=== PATIENT | female | born 2000 | race Caucasian/White ===

== ENCOUNTER 2025-02-11 19:26 | Emergency (ER) | payer OTHER ==
[2025-02-11] MEDS: LORazepam 1 MG/0.5 ML VIAL IV STA (19:55)
[2025-02-11 20:02] LABS: Basophils # (A) 0.08 10*3/uL (0.00-0.10); Basophils % (A) 0.7 %; Eosinophils # (A) 0.16 10*3/uL (0.04-0.35); Eosinophils % (A) 1.5 %; HCT 38.4 % (37.2-46.3); HGB 12.9 g/dL (12.0-15.0); Lymphocytes # (A) 2.44 10*3/uL (0.90-5.00); Lymphocytes % (A) 22.3 %; MCH 29.8 pg (27.0-32.0); MCHC 33.6 g/dL (32.0-37.0); MCV 88.7 fL (80.0-97.0); Monocytes # (A) 0.76 10*3/uL (0.20-1.00); Monocytes % (A) 7.0 %; Neutrophils # (A) 7.45 10*3/uL (1.80-7.70); Neutrophils % (A) 68.2 %; Platelet Count 325 10*3/uL (140-440); RBC 4.33 10*6/uL (4.10-5.20); RDW 13.4 % (11.5-14.5); WBC 10.92 10*3/uL (4.50-10.00)
[2025-02-11 20:15] LABS: ALT 23 U/L (4-34); AST 25 U/L (14-36); African American GFR (CKD) >90 (>60 ml/min/1.73 sqM); Albumin 4.4 g/dL (3.5-5.0); Alkaline Phosphatase 72 U/L (38-126); Anion Gap 12 mmol/L; Blood Urea Nitrogen 15 mg/dL (7-17); Calcium 9.5 mg/dL (8.4-10.2); Carbon Dioxide 22 mmol/L (22-30); Chloride 101 mmol/L (98-107); Glucose 118 mg/dL (74-99); Magnesium 1.8 mg/dL (1.6-2.3); Non-African American GFR(CKD) >90 (>60 ml/min/1.73 sqM); Potassium 4.0 mmol/L (3.5-5.1); Sodium 135 mmol/L (137-145); Total Protein 7.3 g/dL (6.3-8.2)
--- NOTE | 2025-02-11 20:20 | ED ---
Seizure HPI <Cari Farr - Last Filed: 02/11/25 23:10> - General Source: patient, EMS Mode of arrival: EMS Limitations: altered mental status <Gill Martinez - Last Filed: 02/11/25 23:51> - General Chief Complaint: Seizure Stated Complaint: seizure Time Seen by Provider: 02/11/25 19:37 - History of Present Illness Initial Comments: 24-year-old female presenting with chief complaint of seizure. Patient has history of seizures. Family reports that she had a grand mal seizure while at a restaurant tonight. They report that they seem to be stress-induced, the patient is currently in the process of moving back home with her parents after breaking up with her boyfriend. They report that she had a seizure last night when they dropped her back off at her boyfriend's house. She was recently taken off of Keppra. She is currently on Lamictal, and 1 other medication but they are unsure of the name. Patient does not remember the incident. She is now awake and alert and answering questions. No chest pain or difficulty breathing. Parents states she did not hit her head, she was seated and leaned against the wall during the seizure. (Gill Martinez) - Related Data Allergies Allergy/AdvReac Type Severity Reaction Status Date / Time No Known Allergies Allergy Verified 02/11/25 19:47 Review of Systems ROS Other: All systems not noted in ROS Statement are negative. <Cari - Last Filed: 02/11/25 23:10> ROS Other: All systems not noted in ROS Statement are negative. <Gill Martinez - Last Filed: 02/11/25 23:51> ROS Statement: Those systems with pertinent positive or pertinent negative responses have been documented in the HPI. Past Medical History Past Medical History: Seizure Disorder History of Any Multi-Drug Resistant Organisms: None Reported Past Surgical History: No Surgical Hx Reported Past Psychological History: No Psychological Hx Reported Smoking Status: Never smoker Past Alcohol Use History: None Reported Past Drug Use History: None Reported <Gill Martinez - Last Filed: 02/11/25 23:51> General Exam Limitations: altered mental status General appearance: alert, in no apparent distress Head exam: Present: atraumatic, normocephalic, normal inspection Eye exam: Present: normal appearance, EOMI Neck exam: Present: normal inspection. Absent: meningismus Respiratory exam: Present: normal lung sounds bilaterally. Absent: respiratory distress, wheezes, rales, rhonchi, stridor Cardiovascular Exam: Present: normal rhythm, tachycardia, normal heart sounds. Absent: systolic murmur, diastolic murmur, rubs, gallop, clicks Neurological exam: Present: alert, oriented X3 Expanded Eye Response: (4) open spontaneously Motor Response: (6) obeys commands Verbal Response: (5) oriented Berny Total: 15 Psychiatric exam: Present: normal affect, normal mood Skin exam: Present: warm, dry, normal color <Gill Martinez - Last Filed: 02/11/25 23:51> Course Vital Signs 02/11/25 02/11/25 19:28 21:21 Temperature 98.5 F Pulse Rate 109 H 103 H Respiratory 18 16 Rate Blood Pressure 126/81 O2 Sat by Pulse 97 Oximetry Medical Decision Making - Lab Data Result diagrams: 02/11/25 19:48 02/11/25 19:48 <Cari Farr - Last Filed: 02/11/25 23:10> - Lab Data Result diagrams: 02/11/25 19:48 02/11/25 19:48 <Gill Martinez - Last Filed: 02/11/25 23:51> - Lab Data Lab Results 02/11/25 02/11/25 02/11/25 Range/Units 19:48 19:48 21:52 WBC 10.92 H (4.50-10.00) 10*3/uL RBC 4.33 (4.10-5.20) 10*6/uL Hgb 12.9 (12.0-15.0) g/dL Hct 38.4 (37.2-46.3) % MCV 88.7 (80.0-97.0) fL MCH 29.8 (27.0-32.0) pg MCHC 33.6 (32.0-37.0) g/dL Plt Count 325 (140-440) 10*3/uL MPV 8.9 L (9.5-12.2) fL Immature Gran % (Auto) 0.3 % Neutrophils % 68.2 % Lymphocytes % 22.3 % Monocytes % 7.0 % Eosinophils % 1.5 % Basophils % 0.7 % Immature Gran # 0.03 (0.00-0.04) 10*3/uL Neutrophils # 7.45 (1.80-7.70) 10*3/uL Lymphocytes # 2.44 (0.90-5.00) 10*3/uL Monocytes # 0.76 (0.20-1.00) 10*3/uL Eosinophils # 0.16 (0.04-0.35) 10*3/uL Basophils # 0.08 (0.00-0.10) 10*3/uL Sodium 135 L (137-145) mmol/L Potassium 4.0 (3.5-5.1) mmol/L Chloride 101 (98-107) mmol/L Carbon Dioxide 22 (22-30) mmol/L Anion Gap 12 mmol/L BUN 15 (7-17) mg/dL Creatinine 0.72 (0.52-1.04) mg/dL Est GFR (CKD-EPI)AfAm >90 (>60 ml/min/1.73 sqM) Est GFR (CKD-EPI)NonAf >90 (>60 ml/min/1.73 sqM) Glucose 118 H (74-99) mg/dL Calcium 9.5 (8.4-10.2) mg/dL Magnesium 1.8 (1.6-2.3) mg/dL Total Bilirubin 0.3 (0.2-1.3) mg/dL AST 25 (14-36) U/L ALT 23 (4-34) U/L Alkaline Phosphatase 72 (38-126) U/L Total Protein 7.3 (6.3-8.2) g/dL Albumin 4.4 (3.5-5.0) g/dL Urine Color Yellow Urine Appearance Cloudy H (Clear) Urine pH 5.5 (5.0-8.0) Ur Specific [place] 1.023 (1.001-1.035) Urine Protein Trace H (Negative) Urine Glucose (UA) Negative (Negative) Urine Ketones Negative (Negative) Urine Blood Small H (Negative) Urine Nitrite Negative (Negative) Urine Bilirubin Negative (Negative) Urine Urobilinogen <2.0 (<2.0) mg/dL Ur Leukocyte Esterase Negative (Negative) Urine RBC 2 (0-5) /hpf Urine WBC 2 (0-5) /hpf Ur Squamous Epith Cells 1 (0-4) /hpf Urine Bacteria Rare H (None) /hpf Hyaline Casts 12 H (0-2) /lpf Urine Mucus Few H (None) /hpf Urine Yeast (Budding) Rare H (None) /hpf Urine HCG, Qual (Not Detectd) Urine Opiates Screen Not Detected (NotDetected) Ur Oxycodone Screen Not Detected (NotDetected) Urine Methadone Screen Not Detected (NotDetected) Ur Barbiturates Screen Not Detected (NotDetected) U Tricyclic Antidepress Not Detected (NotDetected) Ur Phencyclidine Scrn Not Detected (NotDetected) Ur Amphetamines Screen Not Detected (NotDetected) U Methamphetamines Scrn Not Detected (NotDetected) U Benzodiazepines Scrn Detected H (NotDetected) Urine Cocaine Screen Not Detected (NotDetected) U Marijuana (THC) Screen Not Detected (NotDetected) 02/11/25 Range/Units 21:52 WBC (4.50-10.00) 10*3/uL RBC (4.10-5.20) 10*6/uL Hgb (12.0-15.0) g/dL Hct (37.2-46.3) % MCV (80.0-97.0) fL MCH (27.0-32.0) pg MCHC (32.0-37.0) g/dL Plt Count (140-440) 10*3/uL MPV (9.5-12.2) fL Immature Gran % (Auto) % Neutrophils % % Lymphocytes % % Monocytes % % Eosinophils % % Basophils % % Immature Gran # (0.00-0.04) 10*3/uL Neutrophils # (1.80-7.70) 10*3/uL Lymphocytes # (0.90-5.00) 10*3/uL Monocytes # (0.20-1.00) 10*3/uL Eosinophils # (0.04-0.35) 10*3/uL Basophils # (0.00-0.10) 10*3/uL Sodium (137-145) mmol/L Potassium (3.5-5.1) mmol/L Chloride (98-107) mmol/L Carbon Dioxide (22-30) mmol/L Anion Gap mmol/L BUN (7-17) mg/dL Creatinine (0.52-1.04) mg/dL Est GFR (CKD-EPI)AfAm (>60 ml/min/1.73 sqM) Est GFR (CKD-EPI)NonAf (>60 ml/min/1.73 sqM) Glucose (74-99) mg/dL Calcium (8.4-10.2) mg/dL Magnesium (1.6-2.3) mg/dL Total Bilirubin (0.2-1.3) mg/dL AST (14-36) U/L ALT (4-34) U/L Alkaline Phosphatase (38-126) U/L Total Protein (6.3-8.2) g/dL Albumin (3.5-5.0) g/dL Urine Color Urine Appearance (Clear) Urine pH (5.0-8.0) Ur Specific [place] (1.001-1.035) Urine Protein (Negative) Urine Glucose (UA) (Negative) Urine Ketones (Negative) Urine Blood (Negative) Urine Nitrite (Negative) Urine Bilirubin (Negative) Urine Urobilinogen (<2.0) mg/dL Ur Leukocyte Esterase (Negative) Urine RBC (0-5) /hpf Urine WBC (0-5) /hpf Ur Squamous Epith Cells (0-4) /hpf Urine Bacteria (None) /hpf Hyaline Casts (0-2) /lpf Urine Mucus (None) /hpf Urine Yeast (Budding) (None) /hpf Urine HCG, Qual Not Detected (Not Detectd) Urine Opiates Screen (NotDetected) Ur Oxycodone Screen (NotDetected) Urine Methadone Screen (NotDetected) Ur Barbiturates Screen (NotDetected) U Tricyclic Antidepress (NotDetected) Ur Phencyclidine Scrn (NotDetected) Ur Amphetamines Screen (NotDetected) U Methamphetamines Scrn (NotDetected) U Benzodiazepines Scrn (NotDetected) Urine Cocaine Screen (NotDetected) U Marijuana (THC) Screen (NotDetected) Disposition <Cari Farr - Last Filed: 02/11/25 23:10> Is patient prescribed a controlled substance at d/c from ED?: No Time of Disposition: 23:51 <Gill Martinez - Last Filed: 02/11/25 23:51> Clinical Impression: Seizure disorder Disposition: HOME SELF-CARE Condition: Fair Instructions (If sedation given, give patient instructions): Recurrent Seizures in Adults (ED) Additional Instructions: [facility] law states that you are unable to drive or operate heavy machinery for 6 months after seizure or syncopal event. Please follow-up with your PCP for clearance. Follow-up with PCP and neurologist. Report back to ER with any new or worsening symptoms. Referrals: Norm Martin MD [Primary Care Provider] - 1-2 days
[2025-02-11] MEDS: SODIUM CHLORIDE 0.9% 1,000 ML IV STA (20:30)
[2025-02-11 22:07] LABS: Bacteria,Urine Rare /hpf; Bilirubin,Urine Negative (Negative); Blood,Urine Small (Negative); Budding Yeast,Urine Rare /hpf; Color,Urine Yellow; Glucose,Urine (UA) Negative (Negative); Hyaline Casts,Urine 12 /lpf (0-2); Ketones,Urine Negative (Negative); Leukocyte Esterase,Urine Negative (Negative); Mucus,Urine Few /hpf; Nitrite,Urine Negative (Negative); PH, Urine 5.5 (5.0-8.0); Protein,Urine Trace (Negative); RBC,Urine 2 /hpf (0-5); Specific Gravity,Urine 1.023 (1.001-1.035); Squamous Epithelial Cell,Urine 1 /hpf (0-4); Urobilinogen,Urine <2.0 mg/dL (<2.0); WBC,Urine 2 /hpf (0-5)
[2025-02-11 22:14] LABS: Barbiturate Screen,Urine Not Detected (NotDetected); Benzodiazepines Screen,Urine Detected (NotDetected); Opiate Screen,Urine Not Detected (NotDetected); Oxycodone Screen, Urine Not Detected (NotDetected); Phencyclidine Screen,Urine Not Detected (NotDetected); Tricyclic Antidepressant,Urine Not Detected (NotDetected); Urn Cannabinoid Scrn Not Detected (NotDetected)
[2025-02-11] MEDS: levETIRAcetam IV 500 MG/5 ML VIAL IVP STA (23:27)
[2025-02-12 00:15] VITALS: BP 119/96; PULSE 110; RESP 18; TEMP 97.8
== END 2025-02-12 00:10 | disposition home or self-care (01) ==
LOC: EC 19:26
DX: G40.909 Epilepsy, unspecified, not intractable, without status epilepticus (principal)
CPT/HCPCS: 36415; 93005; 80053; 80175; 83735; 85025; 81001; 81025; 80306; 99284; 96374; 96375; J2060; J1953